=== PATIENT | male | born 1955 | race African-American/Black ===

== ENCOUNTER 2020-08-26 16:24 | Emergency (ER) | payer MEDICARE, MEDICAID ==
[~2020-08-26] VITALS: Ht 175.3 cm; Wt 96.2 kg
[2020-08-26 16:35] VITALS: Ht 175.3 cm; Wt 96.2 kg
[2020-08-26 18:28] VITALS: BP 147/88
== END 2020-08-26 18:28 | disposition home or self-care (01) ==
LOC: ED 16:24
DX: T19.4XXA Foreign body in penis, initial encounter (principal); X58.XXXA Exposure to other specified factors, initial encounter; Y93.89 Activity, other specified; Y92.89 Other specified places as the place of occurrence of the external cause; Y99.8 Other external cause status
CPT/HCPCS: 90715